=== PATIENT | male | born 1955 | race Caucasian/White ===

== ENCOUNTER 2017-07-24 09:51 | Inpatient (IN) | payer OTHER ==
[~2017-07-24] VITALS: Ht 175.3 cm; Wt 89.2 kg
[~2017-07-24 09:51] MED LIST: ALPHAGAN P5 ML OPHTHALMIC; CELEBREX 200 M200 M1 PO; HYDROXYCHLOROQ200 M1 PO; METHOTREXATE 22.5 MG PO; SULFASALAZINE25 GM PO; TENORMIN50 MG PO; XALATAN2.5 M1 OP
[2017-07-24 10:00] VITALS: BP 140/77
[2017-07-24 10:38] LABS: ABSOLUTE BASOPHILS 0.1 thou/uL (0.0-0.2); ABSOLUTE EOSINOPHILS 0.1 thou/uL (0.0-0.7); ABSOLUTE MONOCYTES 0.4 thou/uL (0.0-1.2); ABSOLUTE NEUTROPHILS 4.7 thou/uL (1.6-8.1); BASOPHILS 0.8 %; EOSINOPHILS 1.4 %; HEMATOCRIT 37.3 % (42.0-52.0); HEMOGLOBIN 12.3 gm/dL (14.0-18.0); LYMPHOCYTES 15.6 %; MCH 31.9 pg (26.0-34.0); MCHC 33.1 g/dL (28.0-37.0); MCV 96.5 fL (80.0-100.0); MONOCYTES 6.4 %; MPV 9.3 fl. (7.2-11.1); NUCLEATED RBCS 0 /100WBC; PLATELET COUNT* 219 thou/uL (150-400); POLYS 75.8 %; RBC 3.87 mil/uL (4.50-6.00); RDW-CV 13.7 % (10.5-14.5); WBC 6.2 thou/uL (4.0-11.0)
[2017-07-24 10:47] LABS: APTT 23.8 Seconds (25.0-31.3); CALCIUM 8.8 mg/dL (8.5-10.1); CREATININE 1.3 mg/dL (0.6-1.3); INR 1.1; POTASSIUM 4.3 mmol/L (3.5-5.1); PROTIME 10.7 Seconds (9.20-11.50)
[2017-07-24 10:52] LABS: ALBUMIN 3.5 g/dL (3.4-5.0); TOTAL BILIRUBIN 0.4 mg/dL (<0.1-1.0); TOTAL PROTEIN 6.6 g/dL (6.4-8.2)
[2017-07-24 13:03] LABS: URINE BILIRUBIN NEGATIVE (Negative); URINE BLOOD 2+ (Negative); URINE CLARITY CLEAR; URINE COLOR YELLOW; URINE GLUCOSE-RANDOM NEGATIVE (Negative); URINE KETONES NEGATIVE (Negative); URINE LEUKOCYTES NEGATIVE (Negative); URINE NITRITE NEGATIVE (Negative); URINE PROTEIN NEGATIVE (Negative); URINE UROBILINOGEN 0.2 E.U./dl (0.2-1.0)
[2017-07-24 13:17] LABS: HYALINE CASTS 0-3 Few /LPF (None Seen); MUCUS None Seen strn/LPF (None Seen); SQUAMOUS NONE SEEN /LPF (0-3)
[2017-07-24 13:18] LABS: CRYSTALS None Seen /LPF (None Seen); URINE RBC 0-2 Rare /HPF (0-2)
[2017-07-24 13:19] LABS: BACTERIA None Seen /HPF (None Seen); URINE WBC None Seen /HPF (0-5)
[2017-07-24 15:00] VITALS: BP 123/73
[2017-07-24 15:35] VITALS: BP 122/79
--- NOTE | 2017-07-24 16:52 | NUR ---
PATIENT ADMITTED TO ROOM 310 FROM ER THIS EVENING. ALERT AND ORIENTED X 4. AT BEDSIDE. RATING RECTAL PAIN A 4/10 BUT STATED HE WAS REALLY NAUSEATED. PRN ZOFRAN GIVEN, PATIENT HAD SMALL AMOUNT OF FROTHY EMESIS. ABSORBENT PAD PLACED UNDER PATIENT RECTUM, SEROSANGINOUS DRAINAGE NOTED AND PAD TO BE CHANGED FREQUENTLY. DR. WARD HERE ROUNDING ON PATIENT AND MADE AWARE. IVF INFUSING. PATIENT TOLERATING REG DIET. NPO AFTER MIDNIGHT, DR. CROUCH TO ROUND. UP WITH SBA, PATIENT STATES HE HAS BEEN GETTING DIZZY. ORIENTED TO CALL LIGHT. CALL LIGHT WITHIN REACH, WILL CONTINUE TO MONITOR.
[2017-07-24 20:48] VITALS: BP 109/64
[2017-07-24 23:19] LABS: HEMATOCRIT 34.5 % (42.0-52.0); HEMOGLOBIN 11.4 gm/dL (14.0-18.0)
--- NOTE | 2017-07-25 01:59 | NUR ---
ASSUMED PATIENT CARE AT 1900. PATIENT RESTING IN BED ON RIGHT SIDE. NOTED RECTAL MASS AND BLEEDING. NO OTHER SKIN ISSUES NOTED. SURGERY CAME UP TO SEE PATIENT. DR. CROUCH WAS ABLE TO PUSH MOST OF THE PROLAPSE BACK INTO PLACE, BIOPSY OBTAINED. LABS DRAWN STAT FOLLOWING PROCEDUE. NO CONCERNS NOTED ON NEW LAB WORK. PATIENT HAS REMAINED NPO AFTER 0000. NURSING ASSESSMENT COMPLETED DOCUMENTED.
--- NOTE | 2017-07-25 06:33 | NUR ---
PATIENT WAS ABLE TO REST THROUGH MOST OF THE NIGHT. BRIGHT RED BLOOD STILL COMING FROM THE RECTUM. MINOR COMPLAINTS OF PAIN, CONTROLLED WITH MEDICATION. HOURLY ROUNDING COMPLETED DOCUMENTED
[2017-07-25 06:42] LABS: HEMATOCRIT 31.4 % (42.0-52.0); HEMOGLOBIN 10.3 gm/dL (14.0-18.0); MCH 31.6 pg (26.0-34.0); MCHC 32.8 g/dL (28.0-37.0); MCV 96.4 fL (80.0-100.0); RBC 3.26 mil/uL (4.50-6.00); RDW-CV 13.4 % (10.5-14.5); WBC 13.2 thou/uL (4.0-11.0)
[2017-07-25 07:01] LABS: ALBUMIN 2.7 g/dL (3.4-5.0); CALCIUM 7.9 mg/dL (8.5-10.1); CREATININE 1.1 mg/dL (0.6-1.3); PHOSPHORUS* 4.6 mg/dL (2.5-4.9); POTASSIUM 4.6 mmol/L (3.5-5.1); TOTAL BILIRUBIN 0.5 mg/dL (<0.1-1.0)
[2017-07-25 09:45] VITALS: BP 111/58
--- NOTE | 2017-07-25 16:52 | NUR ---
PATIENT NPO THIS AM AWAITING GI TO ROUND. DR. VAUGHAN SAW PATIENT AND COLONOSCOPY ORDERED FOR TOMORROW. BOWEL PREP STARTED THIS AFTERNOON, PATIENT TOLERATING. NPO AFTER 0600. PATIENT HAD MRI PELVIS DONE THIS AFTERNOON, RESULTS CALLED TO DR. YANEZ AND NO NEW ORDERS RECEIVED. PATIENT VOIDING PER URINAL. TOLERATING CLEAR LIQUIDS. BED ALARM REMAINS ON FOR SAFETY.
[2017-07-25 17:47] VITALS: BP 126/71
[2017-07-25 20:00] VITALS: BP 113/64
--- NOTE | 2017-07-26 08:10 | NUR ---
PT SLEPT ON AND OFF THORUGH NIGHT. ASSESSMENT DOCUMENTED. MEDS GIVEN PER E-SEP. PT REPORTED MILD PAIN, BUT STATED HE WOULD INFORM NURSE IF HE WOULD LIKE ANYTHING FOR PAIN. BOWEL PREP COMPLETED WITH NO COMPLICATIONS. 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 RECTAL MASS WAS DRAINING SEROSANGOUS FLUIDS. IV PATENT, FLUIDS INFUSING. NO CONCERNS AT THIS TIME. WILL CONTINUE TO MONITOR.
[2017-07-26 08:45] VITALS: BP 128/56
[2017-07-26 10:16] VITALS: BP 128/56
--- NOTE | 2017-07-26 11:32 | EKG ---
[place] [address] ELECTROCARDIOGRAM REPORT Name: PHIL GREY Room: [address] ADM IN .R.#: [id number] Admission: 07/24/17 Attend Phys: Kwaku Browning, Discharge: Date of : 55 Report #: [id number] THIS REPORT FOR: //name// [facility] Test Date: 2017-07-26 Test Time: 10:11:26 Pat Name: PHIL RGEY Department: Room: [address] Gender: M Legislative Correspondent: 27 : 1955 Requested By: Cristina Lackey Order Number: [id number] Leroy MD: Alfonso Clark Measurements Intervals [place] Rate: 84 P: 55 [place]: 185 QRS: -17 QRSD: 116 T: -14 QT: 359 QTc: 425 Interpretive Statements Sinus rhythm Nonspecific intraventricular conduction delay Low voltage, precordial leads Nonspecific repol abnormality, diffuse leads No previous ECG available for comparison Electronically Signed On 07-26-2017 11:31:58 CLINICAL ESTHETICIAN by Alfonso Clark [email or web address] <ELECTRONICALLY SIGNED> By: Alfonso Clark MD, [facility] 07/26/17 1131 1011 1011 Alfonso Clark MD, FACC /EPI
--- NOTE | 2017-07-26 15:55 | NUR ---
SW met with pt to complete initial assessment, introduce self, and SW role. Pt alert, oriented, pleasant. Pt at bedside. Pt lives at home with and is retired. Pt anticipates being able to dc home with and does not feel that he will need anything at dc. No DME, No hx HH or SNF. SW to continue to follow to assist with safe dc planning.
[2017-07-26 16:30] VITALS: BP 122/65; BP 95/55
--- NOTE | 2017-07-26 20:11 | NUR ---
PATIENT HAS BEEN A/O X 4 THIS SHIFT. PATIENT MEDICATED FOR PAIN X 2 WITH RELIEF. WENT FOR COLONOSCOPY WITHOUT ANY DIFFICULTY. PATIENT UP TO BEDSIDE COMMODE WITH ASSIST. CONTINUES TO HAVE DRAINAGE FROM RECTUM. TO HAVE SURGERY ON WEDNESDAY. AT BEDSIDE. HOURLY ROUNDING COMPLETED. CALL LIGHT WITHIN REACH. WILL CONTINUE WITH PLAN OF CARE.
[2017-07-26 20:40] VITALS: BP 98/53
[2017-07-27] VITALS (8 sets, daily range): BP systolic 95–149; BP diastolic 46–62
[2017-07-27 07:06] LABS: ABSOLUTE EOSINOPHILS 0.1 thou/uL (0.0-0.7); ABSOLUTE LYMPHOCYTES 1.1 thou/uL (0.8-5.3); ABSOLUTE MONOCYTES 0.5 thou/uL (0.0-1.2); ABSOLUTE NEUTROPHILS 5.5 thou/uL (1.6-8.1); BASOPHILS 0.4 %; EOSINOPHILS 1.1 %; HEMATOCRIT 25.1 % (42.0-52.0); HEMOGLOBIN 8.4 gm/dL (14.0-18.0); LYMPHOCYTES 14.8 %; MCH 31.7 pg (26.0-34.0); MCHC 33.5 g/dL (28.0-37.0); MCV 94.7 fL (80.0-100.0); MONOCYTES 7.5 %; MPV 8.8 fl. (7.2-11.1); NUCLEATED RBCS 0 /100WBC; PLATELET COUNT* 181 thou/uL (150-400); POLYS 76.2 %; RBC 2.65 mil/uL (4.50-6.00); RDW-CV 13.2 % (10.5-14.5); WBC 7.2 thou/uL (4.0-11.0)
[2017-07-27 07:15] LABS: CREATININE 0.9 mg/dL (0.6-1.3); POTASSIUM 3.4 mmol/L (3.5-5.1)
--- NOTE | 2017-07-27 07:41 | NUR ---
PT SLEPT MOST OF SHIFT. ASSESSMENT DOCUMENTED. MEDS GIVEN PER E-MAR. PT UP TO BSC THROUGH NIGHT. IV PATENT FLUIDS INFUSING. NO CONCERNS AT THIS TIME, WILL CONTINUE TO MONITOR.
--- NOTE | 2017-07-27 09:45 | NUR ---
SPOKE WITH DR SMITH REGARDING BLOOD PRESSURE RUNNING LOWER THIS AM. ORDERS TO HOLD ATENOLOL. PATIENT INFORMED OF THE ABOVE. WILL CONTINUE WITH PLAN OF CARE.
--- NOTE | 2017-07-27 12:19 | S ---
[place] [address] SURGICAL PATH RPT PROCEDURE Name: GERMÁN GREY Room: [address] IN .R.#: [id number] Admission: 07/24/17 Date of : 55 Discharge: Report #: [id number] Path Case #: [id number] PATHOLOGY REPORT COLLECTION DATE: 07/26/2017 RECEIVED DATE: 07/26/2017 SUBMITTING PHYS: Dr. Cristina Lackey OTHER PHYS: Dr. Kwaku Topete SPECIMEN(S) RECEIVED: A.Biopsy rectal polyp * * * * * * * * * * * * FINAL DIAGNOSIS: Biopsy rectal polyp: - Hyperplastic polyp. (LUCIA:mgr; 07/27/2017) PATHOLOGIST: David Briones M.D. REPORT ELECTRONICALLY SIGNED BY: David Briones M.D. DATE/TIME: 07/27/2017 11:58 * * * * * * * * * * * * GROSS PATHOLOGY: Received in formalin labeled "Germán Grey, biopsy rectal polyp," are 2 segments of goldberg soft tissue measuring 0.6 x 0.2 x 0.2 cm in aggregate dimensions and measuring 0.3 cm each in maximum dimension. The specimen is submitted entirely in cassette A1. (TSD; 07/26/2017) CLINICAL HISTORY: None provided INITIAL CPT CODE(S): A; 28120 Professional services performed by [facility] at [facility], [place] [address]. Technical services performed by [facility] at [address] [place] [address], [address], [place], [place] [address]. [facility] [address] [place] [address] SURGICAL PATH RPT PROCEDURE Name: GERMÁN GREY Room: [address] IN M.R.#: [id number] Admission: 07/24/17 Date of : 55 Discharge: Report #: [id number] Path Case #: [id number] [place] [address] PHONE: [phone] DIRECTOR: Rubén Watkins M.D. * * * END OF REPORT * * *
--- NOTE | 2017-07-27 13:00 | S ---
[address] [address] SURGICAL PATH RPT PROCEDURE Name: PHIL GREY Room: [address] IN .R.#: [id number] Admission: 07/24/17 Date of : 55 Discharge: Report #: [id number] Path Case #: [id number] PATHOLOGY REPORT COLLECTION DATE: 07/26/2017 RECEIVED DATE: 07/26/2017 SUBMITTING PHYS: Dr. Viv Topete OTHER PHYS: Dr. Kwaku Lackey SPECIMEN(S) RECEIVED: A.Rectal * * * * * * * * * * * * FINAL DIAGNOSIS: Rectal: - Fragmented tubulovillous adenoma, negative for high-grade dysplasia. - See comment. COMMENT: Dr. Heck notified on AM of 07/27/2017. (LUCIA:pit; 07/27/2017) PATHOLOGIST: David Briones M.D. REPORT ELECTRONICALLY SIGNED BY: David Briones M.D. DATE/TIME: 07/27/2017 12:23 * * * * * * * * * * * * GROSS PATHOLOGY: The specimen is received in formalin labeled "lizzette Escobedo". Received are multiple segments of pink-goldberg to light brown possible soft tissue measuring 2.0 x 1.2 x 0.4 cm in aggregate dimensions. The specimen is filtered and entirely submitted in cassette A1. (CAA; 07/26/2017) CLINICAL HISTORY: None provided INITIAL CPT CODE(S): A; 65699 Professional services performed by [facility] at [facility], [address] [place] [id number]. Technical services performed by [facility] at [address] [place] [address], [address], [place] [id number] SURGICAL PATH RPT PROCEDURE Name: PHIL GREY Room: [address] IN M.R.#: [id number] Admission: 07/24/17 Date of : 55 Discharge: Report #: [id number] Path Case #: [id number] [place] [id number]. [facility] [address] [place] [address] PHONE: [phone] DIRECTOR: Rubén Watkins M.D. * * * END OF REPORT * * *
--- NOTE | 2017-07-27 14:26 | NUR ---
PATIENT TAKEN TO PACU AT THIS TIME. CHART SENT WITH PACU PERSONNEL. ACCOMPANIED PATIENT TO PACU.
--- NOTE | 2017-07-27 16:29 | PROC ---
[address] [address] PROCEDURE REPORT Name: QUEPHIL Lopez Room: [address] IN .R.#: [id number] Admission: 07/24/17 Attend Phys: Kwaku Browning, Discharge: Date of : 55 Report #: [id number] THIS REPORT FOR: //name// CC: Viv Browning MD DATE OF SERVICE: 07/26/2017 PROCEDURE PERFORMED: Colonoscopy with cold biopsy polypectomy. INDICATION FOR PROCEDURE: Protruding rectal lesion versus hemorrhoids versus partial rectal prolapse. PHYSICAL EXAMINATION: VITAL SIGNS: Normal. LUNGS: Clear. CARDIOVASCULAR: Regular. ABDOMEN: Soft, nontender, nondistended. Bowel sounds are positive. DESCRIPTION OF PROCEDURE: An informed consent was obtained from the patient including the nature, risks, benefits and alternatives described. The patient was placed in the left lateral decubitus position with oximetry, blood pressure and cardiac monitoring. IV sedation was titrated with medication to effect. The [employer] video colonoscope was then advanced under direct vision to the level of the cecum, which was identified by the ileocecal valve and the appendiceal orifice. The cecum, ascending, transverse, descending and sigmoid colon were then circumferentially inspected in a well prepped colon. There were 2 diminutive polyps in the proximal rectum, which were removed by cold biopsy forceps. These were 2-3 mm in size. I found no evidence for any colitis, tumors, cancers, diverticular changes or any other abnormalities. There were large internal and external hemorrhoids. The protruding lesion is an extension of the normal mucosa and hemorrhoids. Note that the protruding lesion is not a rectal mass. Prior to pulling the scope, the ileocecal valve was traversed and the terminal ileum was evaluated and found to be normal. Scope and air were then withdrawn, and the patient was sent to the recovery room in stable condition. IMPRESSION: 1. Two diminutive rectal polyps, status post cold biopsy polypectomy. 2. Internal and external hemorrhoids with hemorrhagic tissue protruding from the anus. This may be due to either partial rectal [place] [address] PROCEDURE REPORT Name: PHIL GREY Room: [address] IN [facility].#: [id number] Admission: 07/24/17 Attend Phys: Kwaku Browning, Discharge: Date of : 55 Report #: [id number] RECOMMENDATION: We will refer the patient to Surgery for definitive treatment. <ELECTRONICALLY SIGNED> By: Cristina Lackey MD 07/27/17 1629 1407 Anuj Lackey MD /nt
--- NOTE | 2017-07-27 16:29 | CON ---
[address] [address] CONSULTATION Name: PHIL GREY Room: [address] IN ..#: [id number] Admission: 07/24/17 Attend Phys: Kwaku Browning, Discharge: Date of : 55 Report #: [id number] THIS REPORT FOR: //name// CC: Alfonso Browning DATE OF SERVICE: 07/25/2017 REQUESTING PHYSICIAN: Dr. Kwaku Browning. REASON FOR CONSULT: Rectal pain, protruding lesion from the anus and rectal bleeding. HISTORY OF PRESENT ILLNESS: This is a 62-year-old male with history of colonoscopy about [address] Mckeon who presented to hospital with rectal pain and protruding lesion from the anus, which intermittently bleeds and is painful. He had a CT of abdomen and pelvis, which showed evidence of sigmoid diverticulosis and possible protrusion of hemorrhoids versus rectal prolapse versus rectal mass. The patient claims that he usually is constipated and straining causes him to have rectal bleeding and protrusion of the rectal lesion. PAST MEDICAL HISTORY: Significant for history of glaucoma, rheumatoid arthritis, diverticulosis, hypertension, hemorrhoids. ALLERGIES: No known drug allergy. MEDICATIONS: Please refer to hospital MAR. SOCIAL HISTORY: The patient is . Denies tobacco or alcohol use. FAMILY HISTORY: The patient has had an aunt who from colon cancer at the age of 55. PHYSICAL EXAMINATION: VITAL SIGNS: Reveals blood pressure of 111/58, respiration is 16, pulse 87, temperature 99.2. LUNGS: Clear. CARDIOVASCULAR: Regular. ABDOMEN: Soft, nontender, nondistended. Bowel sounds are positive. NEUROLOGIC: The patient is alert and oriented x 3. There is no focal neurologic deficit. LABORATORY DATA: Revealed sodium of 142, potassium 4.2, BUN is 20, creatinine [facility] [address] [place] [address] CONSULTATION Name: PHIL GREY Room: [address]#: [id number] Admission: 07/24/17 Attend Phys: Kwaku Browning, Discharge: Date of : 55 Report #: [id number] 1.1, glucose 132. Liver function test is within normal limits. Albumin is 2.7. INR is 1.1. WBC is 13.2 with hemoglobin of 10.3 and platelet of 235. IMAGING: CT of abdomen and pelvis was obtained on admission, which suggested mild colonic diverticulosis without evidence of diverticulitis. There is also exophytic mass protruding from the anus, which appears vascular. ASSESSMENT AND PLAN: The patient with a history of colonoscopy about 10 years ago and diverticulosis without any evidence of diverticulitis who has been having intermittent rectal pain and protrusion of exophytic lesion from anus. We will go ahead and consider a colonoscopy tomorrow. Meanwhile, we will prep him for the procedure and give him lidocaine gel to be applied per anus q.4 hours. The patient also receiving fentanyl p.r.n. for pain, which we will continue. We will make further recommendation once the patient colonoscopy is complete. <ELECTRONICALLY SIGNED> By: Cristina Lackey MD 07/27/17 1629 1157 [id number] Lackey MD /nt
--- NOTE | 2017-07-27 19:43 | NUR ---
PATIENT RETURNED FROM PACU AT 1855. ELI-PAD CHANGED WITH RIDING SILKS CUSTODIAN AT BEDSIDE, SMALL AMOUNT OF DRAINAGE NOTED ON PAD. PATIENT STATES ONLY HAVE A LITTLE BIT OF PRESSURE TO RECTAL AREA. URINAL PROVIDED TO PATIENT. ORDERS REVIEWED. AT BEDSIDE. REPORT GIVEN TO NIGHT NURSE WHO WILL BE ASSUMING CARE. CALL LIGHT WITHIN REACH. WILL CONTINUE WITH PLAN OF CARE.
[2017-07-28] VITALS (9 sets, daily range): BP systolic 80–115; BP diastolic 35–58
--- NOTE | 2017-07-28 02:40 | NUR ---
PT WITH TEMP 102.9. DR NOTIFIED AND ORDERS RECEIVED. LABS DRAWN, CXRAY OBTAINED AND IV ABX GIVEN PER ORDERS. PT DENIES PAIN AT THIS TIME. PERIPAD WITH MOD AMOUNT OF BLOODY DRAINAGE PRESENT- NEW PERIPAD PLACED. PT VOIDING PER URINAL WITHOUT DIFFICULTY. WILL CONTINUE TO MONITOR AND PROVIDE CARES NEEDED.
[2017-07-28 03:20] LABS: MCH 31.4 pg (26.0-34.0); MCHC 33.3 g/dL (28.0-37.0); MCV 94.1 fL (80.0-100.0); MPV 8.9 fl. (7.2-11.1); NUCLEATED RBCS 0 /100WBC; PLATELET COUNT* 196 thou/uL (150-400); RBC 2.87 mil/uL (4.50-6.00); RDW-CV 13.2 % (10.5-14.5); WBC 12.7 thou/uL (4.0-11.0)
[2017-07-28 03:31] LABS: CALCIUM 7.9 mg/dL (8.5-10.1); CREATININE 1.1 mg/dL (0.6-1.3); POTASSIUM 3.8 mmol/L (3.5-5.1)
[2017-07-28 03:33] LABS: APTT 25.2 Seconds (25.0-31.3); INR 1.1; PROTIME 11.1 Seconds (9.20-11.50)
[2017-07-28 03:35] LABS: ALBUMIN 2.6 g/dL (3.4-5.0); MAGNESIUM 1.7 mg/dL (1.8-2.4); TOTAL BILIRUBIN 0.6 mg/dL (<0.1-1.0); TOTAL PROTEIN 5.3 g/dL (6.4-8.2)
[2017-07-28 04:17] LABS: ABSOLUTE LYMPHOCYTES 0.8 thou/uL (0.8-5.3); ABSOLUTE MONOCYTES 0.6 thou/uL (0.0-1.2); ABSOLUTE NEUTROPHILS 11.3 thou/uL (1.6-8.1); PLATELET ESTIMATE ADEQUATE
--- NOTE | 2017-07-28 07:45 | NUR ---
ASSUMED CARE OF PATIENT AT THIS TIME AFER RECEIVING BEDSIDE REPORT FROM NIGHT NURSE. PATIENT'S TEMPERATURE TRENDING DOWN, BP REMAINS LOW, SEE DOCUMENTED INTERVENTION. PATIENT DRESSING TO BUTTOCKS INTACT, SURGERY RESIDENT IN TO ASSESS PATIENT. PATIENT CONTINUES ON IV BOLUS. WILL CONTINUE WITH PLAN OF CARE.
--- NOTE | 2017-07-28 07:52 | NUR ---
0633 PT WITH DECREASE IN BP, SCREENING + SEPSIS PROTOCOL. IVF BOLUS INITIATED PER SEVERE SEPSIS PROTOCOL AND DR NICE NOTIFIED THROUGH KARI MANCERA, MESSAGE RECEIVED BY 0643-NO CALL BACK RECEIVED AND NO NEW ORDERS ENTERED INTO COMPUTER. SURGERY DR ON FLOOR TO EXAMINE PATIENT 0705 AND MADE AWARE OF PT CONDITION. NO NEW ORDERS RECEIVED AT THIS TIME FROM SURGERY TEAM. PT REMAINS AOX4, DENIES DISTRESS. REPORT GIVEN TO SILVA ORTIZ DAYSHIFT. PT VOIDING ADEQUATE AMOUNTS PER URINAL. RFA NS BOLUS INFUSING PER PROTOCOL. PT ABLE TO USE CALL LITE AND MAKE NEEDS KNOWN.
[2017-07-28 10:17] LABS: URINE BILIRUBIN NEGATIVE (Negative); URINE BLOOD NEGATIVE (Negative); URINE CLARITY CLEAR; URINE COLOR YELLOW; URINE GLUCOSE-RANDOM NEGATIVE (Negative); URINE KETONES NEGATIVE (Negative); URINE LEUKOCYTES-REFLEX NEGATIVE (Negative); URINE NITRITE-REFLEX NEGATIVE (Negative); URINE PROTEIN NEGATIVE (Negative); URINE SPECIFIC GRAVITY 1.015 (1.005-1.030); URINE UROBILINOGEN 0.2 E.U./dl (0.2-1.0)
--- NOTE | 2017-07-28 11:14 | NUR ---
PATIENT STATES STARTING TO FEEL BETTER THAN THIS AM. AT BEDSIDE. CONTINUES WITH BOLUS OF NS. WILL CONTINUE WITH PLAN OF CARE.
--- NOTE | 2017-07-28 19:57 | NUR ---
PATIENT HAS BEEN A/O X 4 THIS SHIFT. HAS HAD COMPLAINTS OF INTERMITTENT RECTAL PRESSURE FROM SURGERY, GELFOAM TO RECTUM REMOVED BY SURGERY THIS SHIFT AND STATES PRESSURE HAS IMPROVED. PATIENT ABLE TO TOLERATE SITTING MORE ON BUTTOCKS THIS AFTERNOON. CONTINUES ON SEPSIS PROTOCOL. RECEIVED NS BOLUS AND FLUIDS CONTINUE TO INFUSE AT 150 ML/HR. STARTED ON ZOSYN THIS SHIFT. VOIDING PER URINAL, EMPTYING BEFORE BEING ABLE TO RECORD OUTPUT. PATIENT PASSING GAS BUT NO BMS THIS SHIFT. TYLENOL GIVEN THIS AFTERNOON FOR TEMP OF 100.9. BLOOD PRESSURES SOFT THROUGHOUT THE SHIFT, DR SMITH AWARE. TOLERATING DIET. AT BEDISDE THROUGHOUT THE SHIFT. TO HAVE LABS REPEATED IN AM. PATIENT AND UPDATED ON ALL NEW ORDERS AND PLAN OF CARE. HOURLY ROUNDING COMPLETED. CALL LIGHT WITHIN REACH. WILL CONTINUE WITH PLAN OF CARE.
[2017-07-29] VITALS (8 sets, daily range): BP systolic 81–104; BP diastolic 41–54
[2017-07-29 04:45] LABS: ABSOLUTE BASOPHILS 0.1 thou/uL (0.0-0.2); ABSOLUTE EOSINOPHILS 0.2 thou/uL (0.0-0.7); ABSOLUTE MONOCYTES 0.7 thou/uL (0.0-1.2); ABSOLUTE NEUTROPHILS 10.3 thou/uL (1.6-8.1); BASOPHILS 0.4 %; EOSINOPHILS 1.5 %; LYMPHOCYTES 8.3 %; MCH 31.4 pg (26.0-34.0); MCHC 33.2 g/dL (28.0-37.0); MCV 94.7 fL (80.0-100.0); MONOCYTES 5.8 %; MPV 9.1 fl. (7.2-11.1); NUCLEATED RBCS 0 /100WBC; PLATELET COUNT* 177 thou/uL (150-400); RBC 2.01 mil/uL (4.50-6.00); RDW-CV 13.6 % (10.5-14.5); WBC 12.3 thou/uL (4.0-11.0)
[2017-07-29 05:12] LABS: HEMOGLOBIN 6.3 gm/dL (14.0-18.0); PREALBUMIN 11.7 mg/dL (18.0-35.7)
[2017-07-29 05:19] LABS: CALCIUM 7.4 mg/dL (8.5-10.1); CREATININE 1.2 mg/dL (0.6-1.3); POTASSIUM 3.2 mmol/L (3.5-5.1); TOTAL BILIRUBIN 0.7 mg/dL (<0.1-1.0); TOTAL PROTEIN 4.1 g/dL (6.4-8.2)
--- NOTE | 2017-07-29 05:52 | NUR ---
PATIENT SLEPT MOST OF THE NIGHT. IV FLUIDS AND ANTIBIOTICS WERE GIVEN ORDERED. BLOOD PRESSURE STILL RUNNING IN THE 80'S TO 90 SYSTOLIC. PATIENT CONTINUES TO RUN A TEMP.TYLENOL WAS GIVEN THIS MORNING FOR A TEMP. PATIENT HAS A CRITICAL HEMOGLOBIN OF 6.3 AND IS GOING TO BE GETTING A UNIT OF BLOOD. PATIENT HAS HAD NO COMPLAINTS OF PAIN. WILL CONTINUE TO MONITOR.
[2017-07-29 12:46] LABS: HEMATOCRIT 22.5 % (42.0-52.0); HEMOGLOBIN 7.6 gm/dL (14.0-18.0)
--- NOTE | 2017-07-29 13:34 | NUR ---
DR. SMITH NOTIFIED OF HGB LEVEL AFTER TRANSFUSION, 7.6. DR. SMITH NOTIFIED AND 1 MORE UNIT PRBC'S ORDERED. DR. SMITH NOTIFIED OF PATIENT TEMP OF 101.5, PER PROTOCOL BLOOD NOT TO BE TRANSFUSINED UNLESS TEMP <100.3. PRN TYLENOL WAS GIVEN AT 1150. PER DR. SMITH OK TO GIVE IV ZOSYN AND IV VANCOMYCIN AND THEN TRANSFUSE BLOOD WHEN TEMP IS DOWN.
--- NOTE | 2017-07-29 16:03 | NUR ---
PATIENT STARTED ON IV VANC THIS AFTERNOON. PATIENT CONTINUES TO HAVE FEVERS, DR. SMITH AWARE OF EACH TEMP. PATIENT HGB 7.3 AFTER BLOOD TRANSFUSION, WILL TRANSFUSE ANOTHER UNIT THIS EVENING. VOIDING PER URINAL. NO BM NOTED THIS SHIFT. NO BLEEDING NOTED FROM ANUS, BRIEF IN PLACE. POTASSIUM REPLACED PO PER SURGERY ORDERS.
--- NOTE | 2017-07-29 16:51 | NUR ---
PATIENT TEMP ELEVATED AGAIN THIS EVENING, DR. SMITH NOTIFIED THROUGH YOU CALL MD, NO RETURN CALL AT THIS TIME. DR. PACE FROM SURGERY NOTIFIED OF STATUS THROUGHOUT THE SHIFT; WILL BE ROUDING ON PATIENT THIS EVENING. PATIENT ENCOURAGED TO US IS AND MOVE AROUND OUT OF BED.
[2017-07-30 00:15] VITALS: BP 90/48
[2017-07-30 03:18] VITALS: BP 94/56
[2017-07-30 04:44] LABS: ABSOLUTE EOSINOPHILS 0.2 thou/uL (0.0-0.7); ABSOLUTE LYMPHOCYTES 0.8 thou/uL (0.8-5.3); ABSOLUTE MONOCYTES 0.5 thou/uL (0.0-1.2); ABSOLUTE NEUTROPHILS 5.5 thou/uL (1.6-8.1); BASOPHILS 0.6 %; EOSINOPHILS 2.7 %; HEMATOCRIT 20.8 % (42.0-52.0); LYMPHOCYTES 11.6 %; MCH 31.6 pg (26.0-34.0); MCHC 33.4 g/dL (28.0-37.0); MCV 94.5 fL (80.0-100.0); MONOCYTES 7.5 %; MPV 9.2 fl. (7.2-11.1); NUCLEATED RBCS 0 /100WBC; PLATELET COUNT* 171 thou/uL (150-400); POLYS 77.6 %; RDW-CV 13.1 % (10.5-14.5)
--- NOTE | 2017-07-30 04:44 | NUR ---
ASSUMED CARE OF PT AT 1899 PT ALERT AND ORIENTED X4. PT CONTINUED FROM PREVIOUS SHIFT TO BE FEBRILE WITH SOFT BP'S. TYLENOL GIVEN AT [address] PT [address] WITH CONTRAST AT 1929. PT DENIED ANY COMPLAINTS AND SLEPT THROUGH THE NIGHT NO NOTED RECTAL BLEEDING. DR PICHARDO NOTIFIED THAT PT STILL FEBRILE WITH SOFT BPS'S. WILL MONITOR.
[2017-07-30 05:09] LABS: ALBUMIN 1.9 g/dL (3.4-5.0); CALCIUM 7.6 mg/dL (8.5-10.1); CREATININE 1.2 mg/dL (0.6-1.3); POTASSIUM 3.2 mmol/L (3.5-5.1); TOTAL BILIRUBIN 0.5 mg/dL (<0.1-1.0); TOTAL PROTEIN 4.6 g/dL (6.4-8.2)
[2017-07-30 05:35] LABS: HEMOGLOBIN 6.9 gm/dL (14.0-18.0)
[2017-07-30 06:30] VITALS: BP 100/54; BP 101/56; BP 102/62; BP 104/58; BP 96/49; BP 99/55
[2017-07-30 07:45] VITALS: BP 102/62
--- NOTE | 2017-07-30 11:27 | OP ---
[facility] [address] [place] [address] OPERATIVE REPORT Name: PHIL GREY Room: [address] IN M.R.#: [id number] Admission: 07/24/17 Attend Phys: Kwaku Browning, Discharge: Date of : 55 Report #: [id number] THIS REPORT FOR: //name// CC: Alfonso Browning DATE OF SERVICE: 07/27/2017 PREOPERATIVE DIAGNOSIS: Anal mass. POSTOPERATIVE DIAGNOSIS: Anal mass. PROCEDURE: 1. Transanal excision of a large low rectal mass emerging from just at dentate line. 2. Rigid proctosigmoidoscopy. 3. Hemorrhoidectomy. SURGEON: Viv Topete M.D. SENIOR MEDICAL DIRECTOR: Ever Bateman DO ESTIMATED BLOOD LOSS: 30 mL. COMPLICATIONS: None. FINDINGS: Left posterior lateral mass emerging from dentate approximately 40-50 degrees of the circumference from left lateral to posterior midline. ANESTHESIA: GET. SPECIMEN: Rectal mass. DESCRIPTION OF PROCEDURE: Full informed consent was obtained preoperatively, full discussion of all risks, benefits, alternatives, the questions answered. The patient understood risk of bleeding, infection, reoperation, fecal incontinence or stenosis, pathology which could warrant and additional operations or treatments, and chronic pain as well as catastrophic complications up to . He agreed and wished to proceed. He was taken to the operating room. We prepped and draped in standard sterile lithotomy fashion, began with exam under anesthesia, inspecting externally. Of note, the large mass was prolapsed, left anterior. Pictures were taken for documentation in the chart. Digital rectal exam was performed. There did not appear to be any extension proximal to the level of the dentate and the majority of the mass was external at this time. Performed anoscopy and I could see the base of the polyp [address] [address] OPERATIVE REPORT Name: PHIL GREY Room: [address] IN [facility].#: [id number] Admission: 07/24/17 Attend Phys: Kwaku Browning, Discharge: Date of : 55 Report #: [id number] extending from posterior midline to left lateral for approximately 40-50 degrees. I began with cautery to score around my intended area of transection for that 50-degree circumference. Harmonic scalpel was used to come down at the level of the external hemorrhoids, coming underneath them and being at the extension of the mass. I was able to identify the internal sphincter early and drop it posteriorly away from the mass. There did not appear to be extension into the sphincter. I took approximately 0.5 cm to 1 cm margins around the mass circumferentially. This Harmonic scalpel was used to continue transecting the mass. It was oriented with a long stitch at the left lateral location and a short stitch at the most proximal location for pathology. Next, I surveyed the rest of the anal canal. Of note, there was a thrombosed internal hemorrhoid beginning to get necrotic, right posterior. This was first scored and then taken with Harmonic scalpel again down to the internal sphincter. Dentate was reapproximated with a stitch and using running locking fashion up to the apex it was ligated and then run back out of the skin. This appeared hemostatic. Next, I surveyed the extent of the mucosal separation. This was brought together from proximal to distal with interrupted [id number]-yw-dytmc stitches of 2-0 Vicryl, bringing together the mucosa overlying the sphincter muscle. I irrigated copiously to make sure it was hemostatic. Next, I advanced the rigid proctosigmoidoscopy, insufflating up to 22 cm. I saw no alternative pathologies and the lumen was widely patent. Next, I used 0.5% Marcaine with epi, injecting 30 mL in bilateral pudendal nerve block fashion as well as in the skin around the area of transection. Gel foam was placed intra-anally. Sponge, needle and instrument counts were correct. <ELECTRONICALLY SIGNED> By: Viv Topete MD 07/30/17 1127 1527 [id number] Topete MD /nt
[2017-07-30 12:22] LABS: HEMATOCRIT 25.1 % (42.0-52.0); HEMOGLOBIN 8.4 gm/dL (14.0-18.0)
--- NOTE | 2017-07-30 12:56 | NUR ---
Nutrition: Pt seen for LOS over the weekend. Admitted with rectal bleeding. Diet is now advanced to Low Fiber - pt tolerating. No N/V. Good appetite. Wt: 196#. Albumin 1.9, prealb 11.1. Low risk. Hopeful continued good tolerance of low fiber diet. RD provided pt with a menu because he was not given one upon admission. Pt grateful.
--- NOTE | 2017-07-30 13:42 | S ---
[place] [address] SURGICAL PATH RPT PROCEDURE Name: GERMÁN GREY Room: [address] IN M.R.#: [id number] Admission: 07/24/17 Date of : 55 Discharge: Report #: [id number] Path Case #: [id number] PATHOLOGY REPORT COLLECTION DATE: 07/27/2017 RECEIVED DATE: 07/28/2017 SUBMITTING PHYS: Dr. Viv Topete OTHER PHYS: Dr. Kwaku Bojorquez SPECIMEN(S) RECEIVED: A.Rectal mass long stitch left lateral, short proximal B.Right hemorrhoid * * * * * * * * * * * * FINAL DIAGNOSIS: A. Rectal mass: - Large tubulovillous adenoma with surface erosion and associated with prominent hemorrhoids showing organizing thrombosis and acute and chronic inflammation, negative for high-grade dysplasia. - All surgical margins free of adenomatous changes. See comment. B. Right hemorrhoid: - Benign skin and colonic mucosa with prominent hemorrhoids showing organizing thrombosis, negative for dysplasia/adenomatous change and malignancy. See comment. (LUCIA:mary alice; 07/30/2017) COMMENT: In specimen A, benign and nondysplastic skin, colonic mucosa and anal transitional mucosa is seen at the surgical margins around the periphery of the adenoma. The right posterior hemorrhoid (B) is predominantly benign skin with scant colonic mucosa present. (LUCIA:mary alice; 07/30/2017) PATHOLOGIST: David Briones M.D. REPORT ELECTRONICALLY SIGNED BY: David Briones M.D. DATE/TIME: 07/30/2017 13:41 * * * * * * * * * * * * GROSS PATHOLOGY: A. Received in formalin labeled "Germán Grey, rectal mass, long stitch left lateral, short proximal" is a goldberg-brown portion of possible mucosa which measures 7.5 x 4.2 x 3.5 cm. The specimen is received with a short suture indicating proximal and a long suture indicating left lateral. The specimen is inked as follows: Proximal-red, distal-blue, left lateral-yellow, right medial-orange, deep-black. Comprising nearly the entire specimen [place] [address] SURGICAL PATH RPT PROCEDURE Name: GERMÁN GREY Room: [address] IN [facility].#: [id number] Admission: 07/24/17 Date of : 55 Discharge: Report #: [id number] Path Case #: [id number] nodular mass which measures 7.5 x 4.2 x 3.5 cm and is located to the margins as follows: grossly abuts proximal, measures 0.7 cm to left lateral, measures 0.5 cm to right medial, and measures 1.9 cm to distal. The specimen is serially sectioned from proximal to distal to reveal that the mass measures 0.9 cm to the deep margin. Adjacent fibroadipose tissue is not present. No lymph nodes are grossly identified. Centrifugal Chiller Technician sections of the specimen are submitted as follows: A1-A2 mass to proximal margin A3-A4 mass to left lateral margin A5-A6 mass to right medial margin A7-A8 tour sales representative distal margin A9-A10 mass to deep margin A11-A12 additional mass B. Received in formalin labeled "Germán Grey, right posterior hemorrhoid" is a 3.6 x 1.6 x 1.2 cm pink-goldberg smooth portion of mucosa. The specimen is serially sectioned to reveal multiple blood vessels identified. No gross abnormalities are identified. Centrifugal Chiller Technician sections are submitted in cassette B1. ([facility] 07/29/[place]) CLINICAL HISTORY: Rectal prolapse, rectal mass. INITIAL CPT CODE(S): A; 75704 B; 03192 Professional services [place] [address] Technical services performed by [facility] at [address] [place] [address], [address], [place] [address]. [facility] [address] [place] [address] PHONE: [phone] DIRECTOR: Rubén Watkins M.D. * * * END OF REPORT * * *
--- NOTE | 2017-07-30 15:49 | CON ---
[address] [address] CONSULTATION Name: PHIL GREY Room: [address] IN M.R.#: [id number] Admission: 07/24/17 Attend Phys: Kwaku Browning, Discharge: Date of : 55 Report #: [id number] THIS REPORT FOR: //name// CC: Alfonso Browning DATE OF SERVICE: 07/30/2017 INFECTIOUS DISEASE CONSULTATION ATTENDING PHYSICIAN: Kwaku Browning M.D. REASON FOR EVALUATION: Postoperative fevers. HISTORY OF PRESENT ILLNESS: Chart reviewed, the patient examined. This is a 62-year-old man with history of rheumatoid arthritis, who has long-standing issues with hemorrhoids, who developed marked bleeding on the day of admission, which was 07/24/2017. He was evaluated and thought to have a rectal mass, underwent colonoscopy, biopsy was not definitive and underwent operative debridement with transanal excision of a large low rectal mass and hemorrhoidectomy. Postop course was complicated by some fevers, some of which have been high grade. He does have a requisite amount of pain associated with the operative site. He has had intermittent issues with some dyspnea and this may be secondary to pain-related discomfort. He denies significant anterior abdominal related complaints. He had been started empirically on antibiotics, including vancomycin in addition to Zosyn. He says that he feels better. His temperature is actually down. ALLERGIES: None known. MEDICATIONS: Include vancomycin, Zosyn, p.r.n. analgesics, antiemetics and had received some methotrexate. PAST MEDICAL HISTORY: Rheumatoid arthritis and history of glaucoma. SOCIAL HISTORY: Nonsmoker. No ethanol. FAMILY HISTORY: Noncontributory. REVIEW OF SYSTEMS: As above. PHYSICAL EXAMINATION: GENERAL: He is in mild distress. He is not encephalopathic, appears somewhat undernourished. VITAL SIGNS: Temperature 98.3, T-max overnight 101.9; pulse 75; respirations 16 and blood pressure 102/62[place] [address] CONSULTATION Name: PHIL GREY Room: [address]#: [id number] Admission: 07/24/17 Attend Phys: Kwaku Browning, Discharge: Date of : 55 Report #: [id number] SKIN: Warm, dry. No rashes. HEENT: Otherwise unremarkable. NECK: Supple. LUNGS: Diminished breath sounds. Few scattered crackles at the bases bilaterally. HEART: Regular. I do not appreciate a murmur. ABDOMEN: Soft, nontender. There are no peritoneal signs. Operative site is examined by Dr. Fulton. It was not exquisitely tender superficially. There was a moderate degree of inflammation; I do not think it is excessive. GENITOURINARY: Deferred. RECTAL: Deferred. LABORATORY DATA: Blood cultures sterile thus far. CBC: White count of 7.0, H and H 6.9 and 20.8. His pre-transfusion platelet count of 171,000. Electrolytes: Sodium 141, potassium 3.2, chloride 109, bicarbonate is 25 and BUN and creatinine 15 and 1.2. AST of 64, ALT of 26. Albumin of 1.9. Total protein of 4.6. Lactic acid 0.8. Prealbumin of 11.0. CRP of 133.0. CT abdomen and pelvis showed a decrease in the mass effect in the region of the anus. ASSESSMENT AND PLAN: Postoperative fevers. The patient certainly had a dirty site with significant amount of necrotic material that certainly had some bacteremic seeding. Cultures thus far are no growth. Would continue broad spectrum empiric therapy at this point, pending those results. Continue wound care as prescribed. He was encouraged to use incentive spirometer. I would be concerned a little bit about atelectasis and possible early pneumonitis. The access does not appear to be an issue at this point in terms of potential sites of infection and certainly, should have good coverage for UTIs as well. Increase activity, optimize his nutritional status. <ELECTRONICALLY SIGNED> By: Salvador Mccord MD 07/30/17 1549 [id number] Mccord MD /nt
--- NOTE | 2017-07-30 16:05 | NUR ---
PATIENT TOLERATED UNIT OF BLOOD THIS AM, HGB NOW 8.4. VITALS STABLE, TEMP SLIGHLTY ELEVATED THIS EVENING AT 99.8. PATIENT HAD LARGE BM THIS AFTERNOON, SMALL AMOUNT OF BLOOD NOTED. UP TO SHOWER THIS AM. SCHED IVF AND SCHED ABX INFUSING. POTASSIUM 3.2 THIS AM, REPLACEMENT STARTED THIS AM. PATIENT HOPING TO GO HOME SOON.
[2017-07-30 16:06] VITALS: BP 108/62
--- NOTE | 2017-07-30 16:56 | NUR ---
RE: PHARMACY VANCOMYCIN DOSING. SCR: 1.2, CRCL: 63.8, TMAX: 38.1C, WBC: 7.0. PT RECEIVING VANCOMYCIN 1 GM IV Q8H. PT HAD VANCOMYCIN TROUGH OF 12. (NOTE LATE DRAW BUT ALSO LATE PRIOR DOSE). WILL CONTINUE SAME DOSE. WILL FOLLOW. THANK YOU.
[2017-07-30 22:00] VITALS: BP 103/62
[2017-07-31 04:28] LABS: HEMATOCRIT 22.9 % (42.0-52.0); HEMOGLOBIN 7.7 gm/dL (14.0-18.0); MCH 31.5 pg (26.0-34.0); MCHC 33.8 g/dL (28.0-37.0); MCV 93.2 fL (80.0-100.0); MPV 8.9 fl. (7.2-11.1); RBC 2.45 mil/uL (4.50-6.00); RDW-CV 13.9 % (10.5-14.5); WBC 4.8 thou/uL (4.0-11.0)
[2017-07-31 04:36] LABS: CALCIUM 7.7 mg/dL (8.5-10.1); CREATININE 1.2 mg/dL (0.6-1.3); POTASSIUM 3.7 mmol/L (3.5-5.1)
--- NOTE | 2017-07-31 07:25 | NUR ---
PATIENT SLEPT MOST OF THE NIGHT. IV REMAINS SALINE LOCKED. IV ANTIBIOTICS WERE GIVEN ORDERED. PATIENT HAD A LOW GRADE TEMP MOST OF THE NIGHT. WILL CONTINUE TO MONITOR.
[2017-07-31 08:00] VITALS: BP 114/59
[2017-07-31 12:00] VITALS: BP 103/62
--- NOTE | 2017-07-31 16:03 | NUR ---
PT UP IN ROOM WITH STEADY GAIT. DENIES PAIN. A COUPLE BLOODY STOOLS TODAY. PT TOLERATING PO WELL. LOVENOX HELD D/T BLOODY STOOLS AND DROP IN HGB. AT BS AND UPDATED ON PLAN OF CARE
[2017-07-31 16:50] VITALS: BP 110/60
[2017-08-01] VITALS: BP 101/56
[2017-08-01 04:02] LABS: HEMATOCRIT 24.3 % (42.0-52.0); HEMOGLOBIN 8.1 gm/dL (14.0-18.0); MCH 31.5 pg (26.0-34.0); MCHC 33.5 g/dL (28.0-37.0); MCV 94.1 fL (80.0-100.0); MPV 8.5 fl. (7.2-11.1); RBC 2.58 mil/uL (4.50-6.00); RDW-CV 14.1 % (10.5-14.5); WBC 5.9 thou/uL (4.0-11.0)
[2017-08-01 04:25] LABS: CALCIUM 7.8 mg/dL (8.5-10.1); CREATININE 1.1 mg/dL (0.6-1.3); MAGNESIUM 2.1 mg/dL (1.8-2.4); POTASSIUM 3.6 mmol/L (3.5-5.1)
--- NOTE | 2017-08-01 06:05 | NUR ---
PATIENT SLEPT MOST OF THE NIGHT. NEW IV WAS STARTED CHARTED. IV ANTIBIOTICS WERE GIVEN ORDERED. PATIENT IS HOPING TO GO HOME TODAY OR TOMORROW. WILL CONTINUE TO MONITOR.
[2017-08-01 08:00] VITALS: BP 111/88
[2017-08-01 15:42] VITALS: BP 119/70
[2017-08-01] MEDS ORDERED: AUGMENTIN 875-1 EACH PO ×2 (15:43→16:19)
[2017-08-01 16:13] VITALS: BP 119/70
== END 2017-08-01 16:30 | disposition home or self-care (01) | DRG 348 ==
LOC: M.ERS 09:51 → M.TBA-ER 14:27 → M.3W 14:27
PROVIDERS: Internal Medicine; Physician Assistant; Surgery; ADMIT Family Medicine
PROC: 0DBP8ZX Excision of Rectum, Via Natural or Artificial Opening Endoscopic, Diagnostic (ICD-10-PCS; 2017-07-26)
PROC: 0DBP8ZX Excision of Rectum, Via Natural or Artificial Opening Endoscopic, Diagnostic (ICD-10-PCS; principal; 2017-07-27)
PROC: 06BY4ZC Excision of Hemorrhoidal Plexus, Percutaneous Endoscopic Approach (ICD-10-PCS; 2017-07-27)
PROC: 30233N1 Transfusion of Nonautologous Red Blood Cells into Peripheral Vein, Percutaneous Approach (ICD-10-PCS; 2017-07-29)
DX: K62.1 Rectal polyp (principal); E44.0 Moderate protein-calorie malnutrition; R65.10 Systemic inflammatory response syndrome (SIRS) of non-infectious origin without acute organ dysfunction; D62 Acute posthemorrhagic anemia; K64.9 Unspecified hemorrhoids; H40.9 Unspecified glaucoma; I10 Essential (primary) hypertension; M06.9 Rheumatoid arthritis, unspecified; K62.9 Disease of anus and rectum, unspecified; K64.4 Residual hemorrhoidal skin tags; K57.30 Diverticulosis of large intestine without perforation or abscess without bleeding; I95.9 Hypotension, unspecified; Z68.29 Body mass index [BMI] 29.0-29.9, adult; Z79.899 Other long term (current) drug therapy

== ENCOUNTER → 2021-06-05 | Outpatient (CLI) | payer OTHER ==
[~2021-06-05] MED LIST changes: +AUGMENTIN 875-1 EACH PO
== END ==
LOC: M.CT 09:07
PROVIDERS: ATTEND Family Medicine
DX: Z13.6 Encounter for screening for cardiovascular disorders (principal); I25.10 Atherosclerotic heart disease of native coronary artery without angina pectoris

== ENCOUNTER 2021-06-27 07:24 | Observation (INO) | payer OTHER ==
[2021-06-27] VITALS (10 sets, daily range): BP systolic 114–160; BP diastolic 58–85
[~2021-06-27] VITALS: Ht 175.3 cm; Wt 89.1 kg
--- NOTE | ~2021-06-27 | H ---
[address] [address] HISTORY AND PHYSICAL Name: PHIL GREY Room: [address] [place]#: [id number] Admission: 06/27/21 Attend Phys: Alfonso Clark MD, F Discharge: 06/29/21 Date of : 55 Report #: [id number] THIS REPORT FOR: cc: Rafael Rogers MD, Tuongvan T. MD [facility],Medical Records Staff ~ Please refer to the History and Physical performed in the physician's office. By: 0701Medical Records Staff [facility] /SONNY
--- NOTE | ~2021-06-27 | D ---
[address] [address] DISCHARGE SUMMARY Name: PHIL GREY Room: [address] [place]#: [id number] Admission: 06/27/21 Attend Phys: Alfonso Clark MD, F Discharge: 06/29/21 Date of : 55 Report #: [id number] THIS REPORT FOR: cc: Rafael Rogers MD, Tuongvan T. MD Blick, David R. MD [facility] ~ cc: Teddy Dang MD, Rafael Rogers MD DATE OF DISCHARGE: 06/29/2021 DISCHARGE DIAGNOSES: 1. Coronary artery disease. 2. Hyperlipidemia. 3. Hypertension. 4. Previous tobacco abuse. CONSULTANTS: None. PROCEDURES: Left heart catheterization via the right radial artery. HISTORY OF PRESENT ILLNESS: The patient is a 66-year-old white male who was brought to the outpatient department at [facility] for diagnostic cardiac catheterization. The patient has no previous history of heart disease. Because of risk factors, he recently underwent coronary artery calcium score and his score was 1744. He did note occasional chest discomfort with exertion. He also complains of exertional dyspnea. He was referred to my partner, Dr. Bob. He saw me in the Cardiology Clinic on 06/17. Because of symptoms and abnormal calcium score, he recommended cardiac catheterization. PAST MEDICAL HISTORY: Significant for bunionectomy. He had a history of hypertension, hyperlipidemia. CURRENT MEDICATIONS: Include atorvastatin, Benicar, eyedrops for glaucoma. PHYSICAL EXAMINATION: VITAL SIGNS: Blood pressure 136/80, pulse 72. CHEST: Clear to auscultation. CARDIAC: Regular rate and rhythm. ABDOMEN: Soft. EXTREMITIES: No edema. HOSPITAL COURSE: The patient was brought to the outpatient department. I performed a cardiac catheterization from the right femoral artery. Results showed an 80% narrowing of the distal left main artery. The right coronary artery was occluded and filled by collaterals. The results were discussed with the patient and his . He was felt to have severe coronary artery disease, [place] [address] DISCHARGE SUMMARY Name: PHIL GREY Room: [address] M.R.#: [id number] Admission: 06/27/21 Attend Phys: Alfonso Clark MD, F Discharge: 06/29/21 Date of : 55 Report #: [id number] not amenable to stenting. I felt he needed coronary artery bypass surgery. Because of the severe stenosis of the left main artery. I was reluctant to discharge the patient from the hospital. He also had a chronic occlusion of the first marginal branch of the circumflex. He also had easily reproduced angina. I therefore recommended he be admitted to the hospital and placed on therapeutic Lovenox and a beta beau. Fortunately, he had no further chest pain, shortness of breath, arrhythmias. He had no bleeding from the right radial artery following the procedure. I contacted Dr. Teddy Dang of the cardiovascular surgery service at [facility], who agreed with need for bypass surgery. The patient had no further chest pain or shortness of breath. In anticipation of surgery, he did undergo carotid Doppler study that showed only plaque formation, but no significant stenosis. He underwent a chest x-ray that showed normal heart size, clear lung suarez. His lab work included sodium 142, creatinine 1.1. Liver function studies were normal. Cholesterol 131, triglyceride 88, HDL 45, LDL 69. His hemoglobin is 13.6. HOSPITAL COURSE: The patient was admitted to a monitored bed and placed on therapeutic Lovenox injections. He remained stable. He will be then transferred on 07/06/2021 to [facility] to be seen by Dr. Teddy Dang. The plan was to perform coronary bypass surgery on Wednesday, 07/07 at [facility]. He was felt to have a good prognosis from cardiac standpoint. He was instructed to follow up with Dr. Rogers for his routine medical care after his discharge after his bypass surgery. By: [id number] Clark MD, [facility] /nt
[~2021-06-27 07:24] MED LIST changes: +ASPIRIN EC81 M1 PO; +BENICAR20 MG PO; +LIPITOR40 MG PO
[2021-06-27 08:55] LABS: HEMATOCRIT 40.4 % (42.0-52.0); HEMOGLOBIN 13.6 gm/dL (14.0-18.0); MCH 31.5 pg (26.0-34.0); MCHC 33.6 g/dL (28.0-37.0); MCV 93.6 fL (80.0-100.0); MPV 8.7 fl. (7.2-11.1); RBC 4.32 mil/uL (4.50-6.00); RDW-CV 13.3 % (10.5-14.5); WBC 6.6 thou/uL (4.0-11.0)
[2021-06-27 09:08] LABS: APTT 29.8 Seconds (25.0-31.3); INR 1.2
[2021-06-27 09:26] LABS: ANION GAP 8 mmol/L (7-16); BUN 22 mg/dL (7-18); CHLORIDE 106 mmol/L (98-107); CO2 28 mmol/L (21-32); CREATININE 1.1 mg/dL (0.6-1.3); GLUCOSE 97 mg/dL (70-99); POTASSIUM 4.2 mmol/L (3.5-5.1); SODIUM 142 mmol/L (136-145)
[2021-06-27 09:30] LABS: ALBUMIN 3.7 g/dL (3.4-5.0); ALKALINE PHOSPHATASE 84 U/L (46-116); CHOLESTEROL 131 mg/dL (<200); HDL CHOLESTEROL 45 mg/dL (>40); LDL CHOLESTEROL 69 mg/dL (<100); SGOT 16 U/L (15-37); SGPT 24 U/L (30-65); TC:HDL 2.9 Ratio (Not establshd); TOTAL BILIRUBIN 1.5 mg/dL (<0.1-1.0); TOTAL PROTEIN 6.9 g/dL (6.4-8.2); TRIGLYCERIDE 88 mg/dL (<150); VLDL 18 mg/dL (<40)
[2021-06-27 09:31] LABS: SERUM ASSESSMENT Clear
--- NOTE | 2021-06-27 10:51 | EKG ---
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: : 1955 Requested By: Alfonso Clark Order Number: [id number] Reading MD: Alfonso Clark Measurements Intervals [place] Rate: 73 P: 31 SD: 202 QRS: -17 QRSD: 107 T: 4 QT: 406 QTc: 448 Interpretive Statements Sinus rhythm old inferior infarction Consider left atrial enlargement Borderline left axis deviation Abnormal R-wave progression, early transition Compared to ECG 07/26/2017 10:11:26 Intraventricular conduction delay no longer present Early repolarization no longer present inferior infarction now noted Electronically Signed On 06-27-2021 10:51:28 WET PROCESS MILLER HEAD ASSISTANT by Alfonso Clark [email or web address] <ELECTRONICALLY SIGNED> By: Alfonso Clark MD, [facility] 06/27/21 1051 Alfonso Clark MD, [facility] /EPI
--- NOTE | 2021-06-27 15:18 | NUR ---
Pt admitted for a heart cath but now needs open heart sx. Family was wanting him transferred to a [facility] hospital as they know they would have been in network with patient's insurance. CM called [facility], [facility], and with no beds available. [facility] ([facility]) is in network with patient's insurance and can accept over the weekend. A doctor has agreed to admit patient for an overnight stay and then he will be transferred to [facility] over the weekend. Discussed with patient and and encouraged to call their insurance to confirm [facility] is in network for re-assurance. CM following for discharge planning.
--- NOTE | 2021-06-27 19:44 | CARD ---
[address] [address] CARDIAC CATH REPORT Name: PHIL GREY Room: [address] [place] M.R.#: [id number] Admission: 06/27/21 Attend Phys: Alfonso Clark MD, F Discharge: Date of : 55 Report #: [id number] THIS REPORT FOR: cc: Rafael Rogers MD, Tuongvan T. MD Blick, David R. MD [facility] ~ APPROVED REPORT Study performed: 06/27/2021 08:56:28 Patient Details Patient Status: Out-Patient Room #: The patient is a 66 year-old male Event Personnel Alfonso Clark Front End Web Designer, Rosalina Auguste RN RN, Mikie Cosme RTR Scrub, Emmie Siegel RTR Monitor, Meghann Colbert, ANGEL Monitor Procedures Performed Art Access - R radial artery Left Heart Cath w/or w/o Coronaries [facility] Hemostasis with Hemoband Indication Dyspnea, Chest pain Risk Factors Hypercholesterolemia, Coronary Artery DiseaseHypertension Admission/Lab Medications/Medications given during procedure Heparin Unfract., 0.9% Sodium Chloride IV 75 ml per hr, Oxygen Nasal cannula 2 l per min, Lidocaine Subcut 4 ml, Nitroglycerin IA 200 mcg, Verapamil IA 2.5 mg, Heparin IV 4500 units Procedure Narrative The patient was brought electively to the Cardiac Catheterization Laboratory and was prepped and draped in a sterile manner. The right wrist was infiltrated with 2% Lidocaine subcutaneous anesthesia. IV conscious sedation was used throughout procedure with appropriate monitoring and was performed in the presence of a registered nurse who was an independent trained observer other than the physician performing the procedure. A Slender Glidesheath sheath was inserted into the right radial artery. Coronary [place] [address] CARDIAC CATH REPORT Name: PHIL GREY Room: [address]#: [id number] Admission: 06/27/21 Attend Phys: Alfonso Clark MD, F Discharge: Date of : 55 Report #: [id number] using coronary diagnostic catheters. The right coronary system was accessed and visualized with a Diagnostic 6Fr JR4 catheter. The left coronary system was accessed and visualized with a Diagnostic 6Fr JL4 catheter. The left ventricle was accessed and visualized with a Diagnostic 6Fr pigtail catheter. Left ventricular/Aortic Valve gradient assessed via catheter pullback. Left ventriculogram was performed in CHRISTIANSEN projection. Closure device was deployed with a 6 Fr Vasc-Band Reg 24cm. The patient tolerated the procedure well and there were no complications associated with the procedure. There was no hematoma. Intraoperative Conscious Sedation Sedation start time: 951 Case end Time: 101 Fentanyl 50.0 mcg Versed 2.0 mg Fluoro Time: 2.4 minutes Dose: DAP 55579 cGycm2 814 814 mGy Contrast Type and Amount: Visipaque 90ml Coronary Angiography The patient's coronary anatomy is co- dominant. Diagnostic Cath Left Main 80% distal stenosis LAD 0% stenosis Diagonal 2 medium sized vessel with mid 60% stenosis Circumflex 50% proximal stenosis and 80% distal stenosis. OM1 chronically occluded proximally with antegrade filling by bridging collaterals. Right Coronary chronically occluded proximally with antegrade filling by collaterals from the conus branch. Left Ventriculography The left ventricular ejection fraction is estimated to be 60-65%. Left ventricular wall motion abnormalities are not present. There is no mitral insufficiency. Hemodynamics The aortic pressure is 128/68 mmHg with a mean of 94 mmHg. The left ventricular pressure is 135/10 mmHg with a mean of mmHg. The left ventricular end diastolic pressure is 12 mmHg. There was no gradient across the aortic valve upon pullback. Pullback from the left ventricle to the aorta revealed no gradient across [place] [address] CARDIAC CATH REPORT Name: PHIL GREY Room: [address]#: [id number] Admission: 06/27/21 Attend Phys: Alfonso Clark MD, F Discharge: Date of : 55 Report #: [id number] Conclusion 1. 80% stenosis of the left main artery. 2. Chronic occlusion of the RCA and frst marginal branch of the circumflex that filled by collaterals. 3. LVEF 60-65% Recommendations CABG <ELECTRONICALLY SIGNED> By: Alfonso Clark MD, FACC 06/27/211943 43 Dclayton Clark MD, FACC /INF
[2021-06-28] VITALS: BP 132/74
[2021-06-28 04:00] VITALS: BP 125/70
[2021-06-28 08:20] VITALS: BP 108/68
--- NOTE | 2021-06-28 09:04 | NUR ---
PT IS ABLE TO COMMUNICATE HIS NEEDS TO STAFF EFFECTIVELY. HE HAS DENIED THE NEED FOR PAIN MEDICATION UP TO 0700 THIS MORNING. PT TO BE TRANSFERRED TO [facility] ON WEDNESDAY AFTERNOON FOR A CABG THERE.
[2021-06-28 12:00] VITALS: BP 146/83
[2021-06-28 20:00] VITALS: BP 136/77
[2021-06-28 23:03] LABS: URINE BILIRUBIN NEGATIVE (Negative); URINE BLOOD NEGATIVE (Negative); URINE CLARITY CLEAR; URINE COLOR YELLOW; URINE GLUCOSE-RANDOM NEGATIVE (Negative); URINE KETONES NEGATIVE (Negative); URINE LEUKOCYTES NEGATIVE (Negative); URINE NITRITE NEGATIVE (Negative); URINE PROTEIN NEGATIVE (Negative); URINE SPECIFIC GRAVITY 1.025 (1.005-1.030); URINE UROBILINOGEN 0.2 E.U./dl (0.2-1.0)
[2021-06-29] VITALS: BP 135/80
[2021-06-29 04:00] VITALS: BP 118/70
--- NOTE | 2021-06-29 07:07 | NUR ---
PATIENT HAS SLEPT WELL THROUGHOUT THE NIGHT. VSS ON RA. NO C/O CHEST PAIN. MEDICATIONS GIVEN ORDERED AND CHARTED. IV LEFT AC-SL. PATIENT INSTRUCTED TO USE CALL LIGHT WHEN NEEDING ASSISTANCE. HOURLY ROUNDS MADE. WILL CONTINUE WITH PLAN OF CARE AND NURSING TO MONITOR.
[2021-06-29 08:15] VITALS: BP 139/82
[2021-06-29 08:31] VITALS: BP 138/82
[2021-06-29] MEDS ORDERED: METOPROLOL TART25 MG PO (16:21)
== END 2021-06-29 11:25 | disposition short-term general hospital (02) ==
LOC: M.CL 07:24 → M.2W 15:06 → M.TBA-CV 15:06 → M.2W 17:26
PROVIDERS: ADMIT Internal Medicine Cardiovascular Disease; ATTEND Internal Medicine Cardiovascular Disease
DX: I25.10 Atherosclerotic heart disease of native coronary artery without angina pectoris (principal); Z20.822 Contact with and (suspected) exposure to COVID-19; I10 Essential (primary) hypertension; E78.5 Hyperlipidemia, unspecified; Z79.899 Other long term (current) drug therapy; Z87.891 Personal history of nicotine dependence